=== PATIENT | male | born 1955 | race Caucasian/White ===

== ENCOUNTER 2016-11-03 06:25 | Day surgery (SDC) | payer OTHER ==
[2016-11-02 10:33] LABS: HEMATOCRIT 45.9 % (42.0-52.0); HEMOGLOBIN 15.8 g/dL (14.0-18.0); MCH 33.5 PG (27-31); MCHC 34.4 g/dL (33-37); MCV 97.5 FL (81-99); MPV 10.3 FL (7.4-10.4); RBC 4.71 XMIL (4.7-6.1)
[2016-11-02 10:46] LABS: INR 1.01; PROTIME 10.7 Seconds (9.2-11.7)
--- NOTE | 2016-11-02 10:56 | EKG Report ---
Test Performed on : 11/02/2016 10:13:13 AM Test Reason : PAT Blood Pressure : / mmHG Vent. Rate : 049 BPM Atrial Rate : 049 BPM P-R Int : 150 ms QRS Dur : 098 ms QT Int : 448 ms P-R-T Axes : 067 050 049 degrees QTc Int : 404 ms Sinus bradycardia. Non-specific T wave changes in V2 and AVL Otherwise normal ECG No previous ECGs available Confirmed by Ramiro Mg DO ([id number]) on 11/02/2016 6:55:08 PM
[2016-11-02 11:19] LABS: AGAP 11; BUN 14 mg/dL (8-22); CALCIUM 8.9 mg/dL (8.8-10.2); CHLORIDE 99 mmol/L (98-107); COSMO 275; POTASSIUM 4.2 mmol/L (3.5-5.1); SODIUM 138 mmol/L (136-145); TCO2 28 mmol/L (25-35)
[2016-11-03] MEDS ORDERED: LR 1,000 ML ONE ×2 (06:49→12:02)
[2016-11-03] MEDS ORDERED: KEFZOL 1 GM/D5W 50 ML ONE (06:49)
[2016-11-03] MEDS ORDERED: PEPCID ONE (06:50)
[2016-11-03] MEDS ORDERED: REGLAN ONE (06:50)
[2016-11-03] MEDS ORDERED: SENSORCAINE 0.25%/EPI 1:200,000 ONE (09:39)
[2016-11-03] MEDS ORDERED: FENTANYL ONE (10:04)
[2016-11-03] MEDS ORDERED: DIPRIVAN 1% ONE (10:04)
[2016-11-03] MEDS: MORPHINE ONE ×2 (10:16→10:21)
[2016-11-03] MEDS ORDERED: MORPHINE ONE (10:26)
[2016-11-03] MEDS ORDERED: ZOFRAN IV PRN (10:56)
[2016-11-03] MEDS ORDERED: BUPRENEX IV PRN (10:56)
[2016-11-03] MEDS ORDERED: NORCO-10 PO PRN (10:56)
[2016-11-03] MEDS ORDERED: NORCO-10 ONE (11:01)
[2016-11-03] MEDS ORDERED: SODIUM CHLORIDE 0.9% 10 ML ONE (12:01)
[2016-11-03] MEDS ORDERED: NEOSTIGMINE ONE (12:01)
[2016-11-03] MEDS ORDERED: ZOFRAN ONE (12:01)
[2016-11-03] MEDS ORDERED: NORCURON ONE (12:01)
[2016-11-03] MEDS ORDERED: XYLOCAINE-MPF 2% ONE (12:02)
[2016-11-03] MEDS ORDERED: ANESTHESIA PB SET 88 IN 5742 ONE (12:02)
[2016-11-03] MEDS ORDERED: QUELICIN (DOSE) ONE (12:02)
[2016-11-03] MEDS ORDERED: ROBINUL ONE (12:02)
[2016-11-03 12:47] VITALS: BP 143/88
--- NOTE | 2016-11-03 12:51 | OPERATIVE NOTE ---
PROCEDURE DATE: 11/03/2016 PREOPERATIVE DIAGNOSIS: Right inguinal hernia. POSTOPERATIVE DIAGNOSIS: Right inguinal hernia. PROCEDURE: Laparoscopic-assisted robotic right inguinal hernia repair. SURGEON: Mychal Ariza MD. ANESTHESIA: General. ESTIMATED BLOOD LOSS: 3 mL. COMPLICATIONS: None apparent. SPECIMENS: None. FINDINGS: Direct inguinal hernia on the right and early indirect inguinal hernia on the right. TECHNIQUE: He was brought to the operating room and placed supine on the table. General anesthesia was induced. A Lucio catheter was placed and he was placed in stirrups. He was then prepped and draped in usual sterile fashion. 0.25% Marcaine with epinephrine was used to anesthetize our skin incision which was in the middle upper abdomen. The fascia was exposed and incised sharply. Entry into the peritoneal cavity was obtained under direct vision with the Optiview device. Pneumoperitoneum was established. The camera was inserted. There was no evidence of injury to underlying structures. He was placed in steep Trendelenburg. Two 8 mm incision ports were placed under direct vision in the left and right upper quadrants. The robot was brought in and attached to the ports. The instruments and camera were inserted and I went to the console. The lower abdomen was surveyed with the above findings. The peritoneum was then scored and incised on the lower right abdomen and dissected free of the overlying fascia and muscle exposing the indirect and direct inguinal spaces and reducing the indirect and direct hernias. Once the hernia sac had been completely reduced and from the vas deferens and testicular vessels then a self-fixating anatomic mesh was brought in and unfurled and splayed out over the inguinal canal covering the direct and indirect spaces. The lower edge of the mesh was tucked down anterior to the peritoneal reflection. The upper edge was also splayed out flat against the muscle. The peritoneum was then reapproximated covering the mesh with a running absorbable 3-0 V- Loc suture. At this point, the repair was intact and felt to be done safely. I rejoined the sterile field as the robot was undocked and removed. The ports were removed. The abdomen was desufflated. The camera port site fascia was closed with a [id number] 0 Vicryl. The skin was closed with running 4-0 subcuticular Monocryl and Steri-Strips. There were no apparent complications. He was awake in stable condition and transferred to the recovery room.
== END 2016-11-03 12:05 | disposition home or self-care (01) ==
LOC: OPS 06:25
PROVIDERS: ATTEND Surgery
DX: K40.90 Unilateral inguinal hernia, without obstruction or gangrene, not specified as recurrent (principal)
CPT/HCPCS: 80048; 85027; 85610; 93005; 93010; C1781; J0330; J0690; J2270; J2405; J3010; J7120; J2710